=== PATIENT | male | born 1960 | race Caucasian/White ===

== ENCOUNTER 2023-03-18 05:36 | Emergency (ER) | payer OTHER ==
[~2023-03-18] VITALS: Ht 185.4 cm; Wt 120.2 kg
[2023-03-18] MEDS ORDERED: Lopressor25 MG PO (05:51)
[2023-03-18] MEDS ORDERED: LASIX40 MG PO (05:51)
[2023-03-18] MEDS ORDERED: ELIQUIS5 M1 PO (05:51)
[2023-03-18] MEDS ORDERED: PREDNISONE20 M1 PO (06:19)
== END 2023-03-18 07:18 | disposition home or self-care (01) ==
LOC: ED 05:36
DX: G56.02 Carpal tunnel syndrome, left upper limb (principal); Z79.899 Other long term (current) drug therapy

== ENCOUNTER 2023-05-27 10:26 | Emergency (ER) | payer OTHER ==
[~2023-05-27] VITALS: Ht 185.4 cm; Wt 124.7 kg
[~2023-05-27 10:26] MED LIST: ELIQUIS5 M1 PO; LASIX40 MG PO; Lopressor25 MG PO; PREDNISONE20 M1 PO
[2023-05-27] MEDS ORDERED: AMIODARONE HYD200 MG PO (10:49)
== END 2023-05-27 11:23 ==
LOC: ED 10:26
DX: B34.9 Viral infection, unspecified (principal); Z20.822 Contact with and (suspected) exposure to COVID-19; I48.91 Unspecified atrial fibrillation; M19.90 Unspecified osteoarthritis, unspecified site; I10 Essential (primary) hypertension

== ENCOUNTER 2023-10-19 07:38 | Emergency (ER) | payer OTHER ==
[~2023-10-19] VITALS: Ht 185.4 cm; Wt 127.0 kg
[~2023-10-19 07:38] MED LIST changes: +AMIODARONE HYD200 MG PO
[2023-10-19] MEDS ORDERED: Gelatin Sponge 1 EACH SPON T ONE (08:25)
[2023-10-19] MEDS ORDERED: CEPHALEXIN500 M1 PO (08:51)
== END 2023-10-19 08:37 | disposition home or self-care (01) ==
LOC: ED 07:38
DX: S91.115A Laceration without foreign body of left lesser toe(s) without damage to nail, initial encounter (principal); Z79.899 Other long term (current) drug therapy; W20.8XXA Other cause of strike by thrown, projected or falling object, initial encounter; Y93.89 Activity, other specified; Y92.090 Kitchen in other non-institutional residence as the place of occurrence of the external cause; Y99.8 Other external cause status